=== PATIENT | male | born 1995 | race Hispanic/Latino ===

== ENCOUNTER 2017-03-07 07:28 | Emergency (ER) | payer OTHER ==
[~2017-03-07] VITALS: Ht 177.8 cm; Wt 92.7 kg
--- NOTE | 2017-03-07 09:42 | REP ---
Scrotal sonography: History: Epididymitis. Findings: High-resolution bilateral scrotal sonography demonstrates no evidence of intratesticular mass lesion on either side. Testicular parenchyma is homogeneous. Right testis dimensions are 4.6 x 2.2 x 3.0 cm. Left testis measures 4.3 x 2.1 x 3.1 cm. There is a small right-sided hydrocele. Epididymi are unremarkable. Doppler flow is normal to both testes. Resistive indices are 0.65 and 0.53 on the right and left respectively. Impression: Unremarkable scrotal sonography. Signed by Stephen Garay MD 03/07/2017 05:26 P
[2017-03-07] MEDS ORDERED: IBUP-1022 PO (10:11)
[2017-03-07] MEDS ORDERED: DOXY100C37 PO (10:11)
[2017-03-07] MEDS ORDERED: cefTRIAXone SOD 250 MG VIAL (J0696) IM ONE (10:15)
[2017-03-07 10:51] VITALS: BP 144/85
== END 2017-03-07 10:52 | disposition home or self-care (01) ==
LOC: M ED 07:28
DX: N45.1 Epididymitis (principal)
CPT/HCPCS: 76870; 87086; 93976; 96372; 99283; J0696

== ENCOUNTER → 2017-06-01 | Outpatient (REF) | payer OTHER | LOC: M SMT 12:58 | DX: N50.819 Testicular pain, unspecified (principal) ==

== ENCOUNTER 2017-09-30 11:17 | Emergency (ER) | payer OTHER ==
[2017-09-30] MEDS: KETOROLAC 60 MG/2 ML VIAL (J1885) IM (13:57)
== END 2017-09-30 15:12 | disposition home or self-care (01) ==
LOC: M ED 11:17
DX: M54.5 Low back pain (principal)
CPT/HCPCS: J1885